=== PATIENT | female | born 1980 | race Caucasian/White ===

== ENCOUNTER 2018-07-19 19:16 | Emergency (ER) | payer OTHER ==
[2018-07-19] MEDS ORDERED: Acetaminophen 500 MG TAB ONE (19:29)
[2018-07-19] MEDS ORDERED: Ibuprofen 800 MG TAB ONE (19:29)
--- NOTE | 2018-07-19 20:07 | RAD ---
LEFT INDEX FINGER THREE VIEWS: 07/19/18 HISTORY: 37-year-old female with history of injury. There is a suggestion of minimal soft tissue swelling. No evidence for fracture, dislocation or other acute osseous abnormality. IMPRESSION: Probable mild soft tissue swelling. No fracture, dislocation or other significant acute osseous abnor mality. POS: [facility]
== END 2018-07-19 19:45 | disposition home or self-care (01) ==
LOC: MADERS 19:16
DX: S67.191A Crushing injury of left index finger, initial encounter (principal); S61.211A Laceration without foreign body of left index finger without damage to nail, initial encounter; W23.0XXA Caught, crushed, jammed, or pinched between moving objects, initial encounter